=== PATIENT | female | born 2000 | race Caucasian/White ===

== ENCOUNTER 2020-06-20 17:02 | Observation (INO) | payer MEDICAID ==
[~2020-06-20] VITALS: Ht 165.1 cm; Wt 65.8 kg
[2020-06-20] MEDS ORDERED: ACETAMINOPHEN 500MG TABLET PO SCH (20:30)
[2020-06-20] MEDS ORDERED: LACTATED RINGERS 1,000 ML IV SCH (21:15)
[2020-06-20] MEDS ORDERED: TERBUTALINE SULFATE 1MG/ML VIAL SUBCUT PRN (21:15)
[2020-06-20] MEDS ORDERED: CEFAZOLIN 2,000 MG in DEXT 5% WATER 100 ML IV SCH (22:00)
[2020-06-20] MEDS ORDERED: PNV11TAB5 PO (23:35)
== END 2020-06-20 23:55 | disposition home or self-care (01) ==
LOC: 8 EST LDRP 17:02 → 8 EST A/PP 17:16
PROVIDERS: ADMIT Obstetrics & Gynecology; ATTEND Obstetrics & Gynecology
DX: O46.93 Antepartum hemorrhage, unspecified, third trimester (principal); Z3A.32 32 weeks gestation of pregnancy
CPT/HCPCS: 59025; 76805; 76818; 82731; 96361; 96365; 96372; 99281; G0378; J0690; J3105; J7060; 59412; 96360

== ENCOUNTER 2020-07-28 22:29 | Inpatient (IN) | payer MEDICAID ==
[~2020-07-28] VITALS: Ht 162.6 cm; Wt 70.3 kg
[~2020-07-28 22:29] MED LIST: PNV11TAB5 PO
[2020-07-28] MEDS ORDERED: MISOPROSTOL 100MCG TABLET VG SCH (23:30)
[2020-07-28] MEDS ORDERED: CARBOPROST TROMETHAMINE 250 MCG/ML AMPUL IM PRN (23:30)
[2020-07-28] MEDS ORDERED: PENICILLIN G POTASSIUM 5 MMU in DEXT 5% WATER 100 ML IV SCH (23:30)
[2020-07-28] MEDS ORDERED: BUTORPHANOL TARTRATE 2 MG/ML VIAL IV PRN (23:30)
[2020-07-28] MEDS ORDERED: METHYLERGONOVINE MALEATE 0.2 MG/ML IM PRN (23:30)
[2020-07-28] MEDS ORDERED: LIDOCAINE HCL 1% 20ML VIAL (Pyxis) INJ INFIL SCH (23:30)
[2020-07-28] MEDS ORDERED: NALOXONE HCL 0.4 MG/ML 1ML VIAL IM PRN (23:30)
[2020-07-28] MEDS: LACTATED RINGERS 1,000 ML IV SCH (23:50)
[2020-07-28 23:55] LABS: BASOPHILS % 0.2 % (0.0-2.0); EOSINOPHILS % 0.9 % (0.0-5.0); HEMATOCRIT. 34.6 % (36.0-48.0); HEMOGLOBIN. 11.7 g/dL (12.0-16.0); LYMPHOCYTES % 18.1 % (20.0-50.0); MEAN CORPUSCULAR HEMOGLOBIN 28.8 pg (28.0-32.0); MEAN CORPUSCULAR VOLUME 85.4 fL (81.0-99.0); MEAN PLATELET VOLUME 8.7 fl (7.4-10.4); MONOCYTES % 6.6 % (2.0-8.0); NEUTROPHILS % 74.2 % (40.0-76.0); PLATELET 261 x1000/uL (130-400); RED BLOOD CELL COUNT 4.05 mill/uL (4.2-5.4); RED CELL DISTRIBUTION WIDTH 13.5 % (11.6-14.6)
[2020-07-28 23:58] LABS: CLARITY URINE CLEAR (CLEAR); COLOR URINE YELLOW (YELLOW); KETONES URINE NEGATIVE (NEGATIVE); LEUKOCYTE ESTERASE URINE 1+ (NEGATIVE); NITRITE URINE NEGATIVE (NEGATIVE); OCCULT BLOOD URINE NEGATIVE (NEGATIVE); PROTEIN URINE NEGATIVE (NEGATIVE); SPECIFIC GRAVITY URINE 1.012 (1.005-1.030); UROBILINOGEN URINE 0.2 E.U./dL (0.2-1.0)
[2020-07-29 00:10] LABS: INR 0.9; PARTIAL THROMBOPLASTIN TIME 25.4 sec (23.4-31.0); PROTHROMBIN TIME 9.8 sec (9.6-11.0)
[2020-07-29 00:19] LABS: *AMPHETAMINES SCREEN URINE NEGATIVE (NEGATIVE); *BARBITURATES SCREEN URINE NEGATIVE (NEGATIVE); *BENZODIAZEPINES SCREEN URINE NEGATIVE (NEGATIVE); *COCAINE SCREEN URINE NEGATIVE (NEGATIVE); METHADONE URINE SCREEN NEGATIVE (NEGATIVE); OPIATES URINE SCREEN NEGATIVE (NEGATIVE)
[2020-07-29] MEDS: DEXT 5%/LR + PITOCIN 20UNITS/L 1,000 ML IV SCH ×2 (00:19→03:09)
[2020-07-29 00:20] LABS: CANNABINOID URINE SCREEN NEGATIVE (NEGATIVE); PHENCYCLIDINE URINE SCREEN NEGATIVE (NEGATIVE)
[2020-07-29] MEDS: LACTATED RINGERS 1,000 ML IV SCH ×2 (00:29→01:47)
[2020-07-29] MEDS ORDERED: ROPIVACAINE HCL/PF EPIDURAL 200 ML EPI SCH (00:45)
[2020-07-29 00:52] LABS: HEPATITIS B SURFACE ANTIGEN NEGATIVE
[2020-07-29] MEDS ORDERED: GLYCERIN/WITCH HAZEL LEAF MEDICATED PAD TOP PRN (04:00)
[2020-07-29] MEDS ORDERED: LANOLIN OINT 7GM TUBE TOP PRN (04:00)
[2020-07-29] MEDS ORDERED: ACETAMINOPHEN WITH CODEINE 300/30MG TABLET PO PRN (04:00)
[2020-07-29] MEDS ORDERED: BISACODYL 10MG SUPP PR PRN (04:00)
[2020-07-29] MEDS ORDERED: RHO(D) IMMUNE GLOBULIN 300 MCG/SYR IM PRN (04:00)
[2020-07-29] MEDS ORDERED: IBUPROFEN 400MG TABLET PO PRN (04:00)
[2020-07-29] MEDS ORDERED: PENICILLIN G POTASSIUM 2.5 MMU in DEXTROSE 5% WATER 50 ML IV SCH (04:00)
[2020-07-29] MEDS ORDERED: DEXT 5%/LR + PITOCIN 20UNITS/L 1,000 ML IV SCH (04:00)
[2020-07-29 04:30] VITALS: BP 122/81
[2020-07-29] MEDS: IBUPROFEN 800MG TABLET PO PRN ×2 (04:32→17:43)
[2020-07-29 05:00] VITALS: BP 120/82
[2020-07-29 08:00] VITALS: BP 97/51
[2020-07-29] MEDS: PRENATAL VIT/FE FUMARATE/FA TABLET PO SCH (08:46)
[2020-07-29] MEDS: MAGNESIUM/ALUMINUM HYDROXIDE/SIMETHICONE 30ML UDC PO SCH ×4 (08:46→20:47)
[2020-07-29] MEDS: SIMETHICONE 80MG TABLET CHEW PO SCH ×4 (09:06→20:55)
[2020-07-29 17:30] VITALS: BP 122/77
[2020-07-29 20:00] VITALS: BP 113/73
[2020-07-30] MEDS: IBUPROFEN 800MG TABLET PO PRN ×2 (03:56→10:41)
[2020-07-30 05:45] VITALS: BP 115/71
[2020-07-30 07:09] LABS: BASOPHILS % 0.3 % (0.0-2.0); HEMATOCRIT. 30.2 % (36.0-48.0); HEMOGLOBIN. 10.3 g/dL (12.0-16.0); LYMPHOCYTES % 22.1 % (20.0-50.0); MEAN CORPUSCULAR HEMOGLOBIN 29.4 pg (28.0-32.0); MEAN CORPUSCULAR VOLUME 86.6 fL (81.0-99.0); MEAN PLATELET VOLUME 8.4 fl (7.4-10.4); MONOCYTES % 5.3 % (2.0-8.0); NEUTROPHILS % 71.3 % (40.0-76.0); PLATELET 211 x1000/uL (130-400); RED BLOOD CELL COUNT 3.49 mill/uL (4.2-5.4); RED CELL DISTRIBUTION WIDTH 13.9 % (11.6-14.6)
[2020-07-30 07:25] VITALS: BP 114/68
[2020-07-30] MEDS ORDERED: FERROUS SULFATE 325MG TABLET PO SCH (07:30)
[2020-07-30] MEDS ORDERED: TETANUS, DIPHTHERIA, PERTUSSIS VAC/PF 0.5ML (>7YR OLD) IM ONE (08:00)
[2020-07-30] MEDS ORDERED: PENICILLIN G BENZATHINE 2,400,000 UNITS/4ML SYR IM SCH (09:00)
[2020-07-30] MEDS ORDERED: PNEUMOCOCCAL 23-VAL P-SAC VAC 0.5 ML IM ONE (09:00)
[2020-07-30] MEDS ORDERED: INFLUENZA VACCINE 05/PF 0.5 ML VIAL IM ONE (10:00)
[2020-07-30] MEDS: PRENATAL VIT/FE FUMARATE/FA TABLET PO SCH (10:41)
[2020-07-30] MEDS: SIMETHICONE 80MG TABLET CHEW PO SCH (10:41)
[2020-07-30] MEDS: MAGNESIUM/ALUMINUM HYDROXIDE/SIMETHICONE 30ML UDC PO SCH (10:41)
[2020-07-30] MEDS ORDERED: IBUP-2030 PO (11:59)
== END 2020-07-30 13:00 | disposition home or self-care (01) | DRG 560 ==
LOC: OBSVTOIN 22:29 → 8 EST LDRP 22:29 → 8EST 07-29 05:00
PROVIDERS: ADMIT Obstetrics & Gynecology; ATTEND Obstetrics & Gynecology
PROC: 10E0XZZ Delivery of Products of Conception, External Approach (ICD-10-PCS; principal; 2020-07-29)
PROC: 3E0R3BZ Introduction of Anesthetic Agent into Spinal Canal, Percutaneous Approach (ICD-10-PCS; 2020-07-29)
PROC: 00HU33Z Insertion of Infusion Device into Spinal Canal, Percutaneous Approach (ICD-10-PCS; 2020-07-29)
DX: O48.0 Post-term pregnancy (principal); Z37.0 Single live birth; Z3A.39 39 weeks gestation of pregnancy; R76.8 Other specified abnormal immunological findings in serum
CPT/HCPCS: 36415; 80305; 81003; 85025; 86592; 86593; 86703; 86762; 86780; 86850; 86900; 87340; 99281; G0378; J0561; J0595; J2540; J2590; J3490; J7060

== ENCOUNTER 2021-03-09 00:20 | Emergency (ER) | payer MEDICAID ==
[~2021-03-09] VITALS: Ht 165.1 cm; Wt 60.0 kg
[~2021-03-09 00:20] MED LIST changes: +IBUP-2030 PO
[2021-03-09] MEDS ORDERED: MORPHINE SULFATE 4 MG/ML CPJ (NOT FOR IM USE) IV STA (00:53)
[2021-03-09] MEDS ORDERED: ONDANSETRON HCL 4MG/2ML INJ IV STA (00:53)
[2021-03-09] MEDS ORDERED: SODIUM CHLORIDE 0.9% 1,000 ML IV ONE (01:00)
[2021-03-09 01:06] LABS: BASOPHILS % 0.4 % (0.0-2.0); EOSINOPHILS % 2.4 % (0.0-5.0); HEMATOCRIT. 34.9 % (36.0-48.0); HEMOGLOBIN. 11.6 g/dL (12.0-16.0); LYMPHOCYTES % 30.6 % (20.0-50.0); MEAN CORPUSCULAR VOLUME 84.3 fL (81.0-99.0); NEUTROPHILS % 59.6 % (40.0-76.0); PLATELET 424 x1000/uL (130-400); RED BLOOD CELL COUNT 4.14 mill/uL (4.2-5.4); RED CELL DISTRIBUTION WIDTH 13.7 % (11.6-14.6)
[2021-03-09 01:08] LABS: CLARITY URINE CLOUDY (CLEAR); COLOR URINE YELLOW (YELLOW); KETONES URINE TRACE (NEGATIVE); LEUKOCYTE ESTERASE URINE 2+ (NEGATIVE); NITRITE URINE NEGATIVE (NEGATIVE); OCCULT BLOOD URINE 2+ (NEGATIVE); PROTEIN URINE 1+ (NEGATIVE); SPECIFIC GRAVITY URINE 1.037 (1.005-1.030)
[2021-03-09 01:13] LABS: CHLORIDE 110 mEq/L (98-107)
[2021-03-09] MEDS ORDERED: CEFTRIAXONE 1 G PREMIX 50 ML IV NR (03:15)
[2021-03-09] MEDS ORDERED: KETOROLAC 15MG/ML VIAL IV ONE (04:45)
[2021-03-09 09:55] VITALS: BP 120/71
== END 2021-03-09 10:39 | disposition short-term general hospital (02) ==
LOC: ER 00:20 → CANBEDREQ 05:11 → ER 10:39
DX: N12 Tubulo-interstitial nephritis, not specified as acute or chronic (principal)
CPT/HCPCS: 36415; 71045; 74176; 76705; 80053; 81003; 81025; 83605; 83690; 85025; 87086; 93005; 96365; 96375; 99285; J0696; J1885; J2270; J2405; J7030

== ENCOUNTER 2022-06-06 04:11 | Emergency (ER) | payer MEDICAID ==
[~2022-06-06] VITALS: Ht 165.1 cm; Wt 59.0 kg
[2022-06-06 04:21] VITALS: BP 146/98
[2022-06-06] MEDS ORDERED: HYDROCODONE/ACETAMINOPHEN 5/325MG TABLET PO ONE (04:45)
[2022-06-06] MEDS ORDERED: ONDANSETRON HCL 4MG/2ML INJ IM ONE (04:45)
== END 2022-06-07 00:25 | disposition left against medical advice (07) ==
LOC: ER 04:11
DX: S09.8XXA Other specified injuries of head, initial encounter (principal); R11.10 Vomiting, unspecified; Y04.2XXA Assault by strike against or bumped into by another person, initial encounter; Y93.89 Activity, other specified; Y92.89 Other specified places as the place of occurrence of the external cause
CPT/HCPCS: 70450; 81025; 96372; 99284; J2405

== ENCOUNTER 2022-07-05 03:08 | Emergency (ER) | payer MEDICAID ==
[~2022-07-05] VITALS: Ht 165.1 cm; Wt 52.1 kg
[2022-07-05] MEDS ORDERED: ONDANSETRON HCL 4MG/2ML INJ IV STA (03:20)
[2022-07-05] MEDS ORDERED: MORPHINE SULFATE 4 MG/ML CPJ (NOT FOR IM USE) IV STA (03:20)
[2022-07-05] MEDS ORDERED: FAMOTIDINE 20MG/2ML VIAL IV STA (03:20)
[2022-07-05] MEDS ORDERED: SODIUM CHLORIDE 0.9% 1,000 ML IV ONE (03:30)
[2022-07-05 03:39] LABS: HEMATOCRIT. 42.5 % (36.0-48.0); HEMOGLOBIN. 13.9 g/dL (12.0-16.0); MEAN CORPUSCULAR HEMOGLOBIN 29.5 pg (28.0-32.0); MEAN CORPUSCULAR VOLUME 90.3 fL (81.0-99.0); MEAN PLATELET VOLUME 7.2 fl (7.4-10.4); PLATELET 291 x1000/uL (130-400); RED BLOOD CELL COUNT 4.71 mill/uL (4.2-5.4); RED CELL DISTRIBUTION WIDTH 12.9 % (11.6-14.6)
[2022-07-05 03:48] LABS: CHLORIDE 109 mEq/L (98-107)
[2022-07-05 03:49] LABS: HCG SCREEN NEGATIVE
[2022-07-05 04:50] LABS: PLATELET ESTIMATE NORMAL
[2022-07-05] MEDS ORDERED: ONDANSETRON HCL 4MG/2ML INJ IV NR (05:15)
[2022-07-05] MEDS ORDERED: FAMOTIDINE 20MG/2ML VIAL IV NR (05:15)
[2022-07-05] MEDS ORDERED: MORPHINE SULFATE 4 MG/ML CPJ (NOT FOR IM USE) IV NR (05:15)
[2022-07-05 05:29] VITALS: BP 139/97
[2022-07-05] MEDS ORDERED: FAMO40TA70 MT (10:19)
[2022-07-05] MEDS ORDERED: ACET-2708 MT (10:20)
[2022-07-05 10:31] LABS: CLARITY URINE CLEAR (CLEAR); COLOR URINE YELLOW (YELLOW); KETONES URINE TRACE (NEGATIVE); LEUKOCYTE ESTERASE URINE NEGATIVE (NEGATIVE); NITRITE URINE NEGATIVE (NEGATIVE); OCCULT BLOOD URINE NEGATIVE (NEGATIVE); PH URINE 7.5 (4.5-8.0); PROTEIN URINE TRACE (NEGATIVE); SPECIFIC GRAVITY URINE 1.028 (1.005-1.030); UROBILINOGEN URINE 0.2 E.U./dL (0.2-1.0)
[2022-07-05] MEDS ORDERED: CEPH500C2 MT (11:12)
[2022-07-05 11:53] LABS: *AMPHETAMINES SCREEN URINE NEGATIVE (NEGATIVE); *BARBITURATES SCREEN URINE NEGATIVE (NEGATIVE); *BENZODIAZEPINES SCREEN URINE NEGATIVE (NEGATIVE); *COCAINE SCREEN URINE NEGATIVE (NEGATIVE); METHADONE URINE SCREEN NEGATIVE (NEGATIVE); PHENCYCLIDINE URINE SCREEN NEGATIVE (NEGATIVE)
[2022-07-05 11:58] LABS: CANNABINOID URINE SCREEN PRESUMTIVE POSITIVE (NEGATIVE); OPIATES URINE SCREEN PRESUMTIVE POSITIVE (NEGATIVE)
== END 2022-07-05 10:28 | disposition home or self-care (01) ==
LOC: ER 03:17
DX: F12.188 Cannabis abuse with other cannabis-induced disorder (principal); Z71.51 Drug abuse counseling and surveillance of drug abuser; N39.0 Urinary tract infection, site not specified; I49.9 Cardiac arrhythmia, unspecified
CPT/HCPCS: 36415; 80053; 80305; 81003; 83690; 84703; 85025; 93005; 96361; 96374; 96375; 99284; J2270; J2405; J3490; J7030

== ENCOUNTER 2024-02-03 23:02 | Emergency (ER) | payer MEDICAID ==
[~2024-02-03] VITALS: Ht 165.1 cm; Wt 65.5 kg
[~2024-02-03 23:02] MED LIST changes: +ACET-2708 MT; +CEPH500C2 MT; +FAMO40TA70 MT
[2024-02-03 23:22] VITALS: BP 110/68; PULSE 97; RESP 17; TEMP 98.2; O2SAT 99
[2024-02-03] MEDS ORDERED: LACTATED RINGERS 1,000 ML IV SCH (23:30)
[2024-02-03 23:58] LABS: BASOPHILS % 0.3 % (0.0-2.0); EOSINOPHILS % 0.5 % (0.0-5.0); HEMATOCRIT. 35.1 % (36.0-48.0); HEMOGLOBIN. 11.9 g/dL (12.0-16.0); LYMPHOCYTES % 14.5 % (20.0-50.0); MEAN CORPUSCULAR HEMOGLOBIN 30.3 pg (28.0-32.0); MEAN PLATELET VOLUME 7.8 fl (7.4-10.4); NEUTROPHILS % 77.7 % (40.0-76.0); PLATELET 271 x1000/uL (130-400); RED BLOOD CELL COUNT 3.94 mill/uL (4.2-5.4); RED CELL DISTRIBUTION WIDTH 12.6 % (11.6-14.6); WHITE BLOOD COUNT 11.3 x1000/uL (4.5-11.0)
[2024-02-04] MEDS: METOCLOPRAMIDE HCL 10MG/2ML VIAL IV ONE (00:24)
[2024-02-04] MEDS: ACETAMINOPHEN 1000MG/100ML 100 ML IV ONE (00:27)
[2024-02-04 00:29] LABS: ALANINE AMINOTRANSFERASE < 7 IU/L (10-49); ALBUMIN 3.6 g/dL (3.2-4.8); ASPARTATE AMINOTRANSFERASE 12 IU/L (<34); B-HCG QUANTITATIVE 17583 mIU/mL (<3); BILIRUBIN TOTAL 0.3 mg/dL (0.1-1.0); CALCIUM 8.3 mg/dL (8.7-10.4); CARBON DIOXIDE 25 mEq/L (21-32); CHLORIDE 107 mEq/L (98-107); CREATININE 0.5 mg/dL (0.6-1.0); GLUCOSE 99 mg/dL (70-105); POTASSIUM 3.6 mEq/L (3.5-5.1); PROTEIN TOTAL 6.3 g/dL (6.0-8.3); SODIUM 137 mEq/L (136-145); UREA NITROGEN BLOOD 8 mg/dL (9-23)
== END 2024-02-04 01:06 | disposition left against medical advice (07) ==
LOC: ER 23:02
DX: R51.9 Headache, unspecified (principal)
CPT/HCPCS: 80053; 84702; 85025; 36415; 99284; 96365; 96375; J2765; Z7610 ×2; J0131